=== PATIENT | female | born 1950 | race Caucasian/White ===

== ENCOUNTER 2023-01-19 23:21 | Emergency (ER) | payer OTHER ==
[2023-01-19 23:50] VITALS: BMI 23.5
[2023-01-20 00:28] LABS: BASO % 0.3 % (0-2.0); EOS % 1.3 % (0-4.5); HEMATOCRIT 40.2 % (32.4-45.2); HEMOGLOBIN 13.5 GM/dL (10.7-15.3); LYMPH % 53.2 % (8-40); MCH 31.5 pg (25.7-33.7); MCHC 33.7 g/dl (32.0-36.0); MEAN CELL VOLUME 93.4 fl (80-96); MEAN PLT VOLUME 7.5 fl (7.5-11.1); NEUT % 37.2 % (42.8-82.8); PLATELET COUNT 211 10^3/uL (134-434); RDW 12.8 % (11.6-15.6); WHITE BLOOD COUNT 4.7 K/mm3 (4.0-10.0)
[2023-01-20 00:47] LABS: INR 1.1 (0.83-1.09); PROTHROMBIN TIME (PATIENT) 12.7 SEC (9.7-13.0)
[2023-01-20 00:48] LABS: POTASSIUM 3.9 mmol/L (3.5-5.1)
[2023-01-20 00:49] LABS: ACTIVATED PTT 32.3 SECONDS (25.2-36.5)
[2023-01-20 00:50] LABS: ALBUMIN 3.7 g/dl (3.4-5.0); BLOOD UREA NITROGEN 30.2 mg/dL (7-18); CALCIUM 9.1 mg/dL (8.5-10.1)
[2023-01-20 00:53] LABS: CREATININE 0.6 mg/dL (0.55-1.3)
[2023-01-20 00:55] LABS: BILIRUBIN,TOTAL 0.3 mg/dL (0.2-1); TOT PROT 7.1 g/dl (6.4-8.2)
[2023-01-20] MEDS ORDERED: METOPROLOL TARTRATE 5 MG/5 ML VIAL IVPUSH ONE (01:01)
[2023-01-20] MEDS ORDERED: METOPROLOL TARTRATE 5 MG/5 ML VIAL ONE (01:03)
[2023-01-20] MEDS ORDERED: SODIUM CHLORIDE 1,000 ML IV STA (01:42)
[2023-01-20 02:01] VITALS: BP 105/81; PULSE 108; RESP 16
== END 2023-01-20 02:24 | disposition left against medical advice (07) ==
LOC: FER 23:21
PROC: 3E033GC Introduction of Other Therapeutic Substance into Peripheral Vein, Percutaneous Approach (ICD-10-PCS; principal; 2023-01-20)
PROC: 3E0337Z Introduction of Electrolytic and Water Balance Substance into Peripheral Vein, Percutaneous Approach (ICD-10-PCS; 2023-01-20)
DX: I48.91 Unspecified atrial fibrillation (principal); R00.2 Palpitations
CPT/HCPCS: 36415; 71045-TC-FY; 80053; 84484; 85025; 85610; 85730; 86850; 86900; 86901; 93005; 99285-25